=== PATIENT | male | born 1960 | race Caucasian/White ===

== ENCOUNTER → 2018-02-04 | Day surgery (SDC) | payer OTHER ==
[~2018-02-04] MED LIST: HYDROmorphone 2 MG/ML VIAL IV; LIDOCAINE 1% PF 2 ML VIAL. ID; LIDOCAINE 2% 100 MG/5 ML SYRINGE.; MORPHINE SULFATE 4 MG/ML DISP.SYRIN. IV; ONDANSETRON PF 4 MG/2 ML VIAL. IV; PROCHLORPERAZINE 10 MG/2 ML VIAL. IV; PROPOFOL 40 ML IV; fentaNYL PF VIAL 100 MCG/2 ML VIAL IV
[2018-02-04] MEDS: IV RINGERS,LACTATED 1000ML 1,000 ML IV (12:02)
== END | disposition home or self-care (01) ==
LOC: ENDOS 11:26
DX: Z12.11 Encounter for screening for malignant neoplasm of colon (principal); K64.0 First degree hemorrhoids; K62.1 Rectal polyp; K57.30 Diverticulosis of large intestine without perforation or abscess without bleeding; Z79.899 Other long term (current) drug therapy; Z79.82 Long term (current) use of aspirin; Z87.891 Personal history of nicotine dependence; M19.90 Unspecified osteoarthritis, unspecified site; Z86.19 Personal history of other infectious and parasitic diseases
CPT/HCPCS: 45380; 88305; J2704

== ENCOUNTER → 2018-02-10 | Outpatient (CLI) | payer OTHER ==
[2018-02-10 17:11] LABS: BARBITURATES NEG (NEG); BENZODIAZEPINES NEG (NEG); CANNABINOIDS NEG (NEG); COCAINE NEG (NEG); METHADONE NEG (NEG); OPIATES NEG (NEG); PHENCYCLIDINE NEG (NEG)
[2018-02-10 17:19] LABS: AMPHETAMINE/METHAMPHETAMINE NEG (NEG); ETHANOL, URINE NEG (NEG)
== END | disposition home or self-care (01) ==
LOC: LAB 15:39
DX: Z02.89 Encounter for other administrative examinations (principal); Z79.899 Other long term (current) drug therapy; Z79.82 Long term (current) use of aspirin; Z87.891 Personal history of nicotine dependence
CPT/HCPCS: 80307

== ENCOUNTER → 2019-05-03 | Day surgery (SDC) | payer OTHER ==
[~2019-05-03] MED LIST changes: +ASPI-482 PO; +CHOL100017 PO; -HYDROmorphone 2 MG/ML VIAL IV; +IV RINGERS,LACTATED 1000ML 1,000 ML IV SCH; +LANS30CA PO; -LIDOCAINE 1% PF 2 ML VIAL. ID; -LIDOCAINE 2% 100 MG/5 ML SYRINGE.; +LIDOCAINE 2% PF 5 ML VIAL. ONE; -MORPHINE SULFATE 4 MG/ML DISP.SYRIN. IV; -ONDANSETRON PF 4 MG/2 ML VIAL. IV; -PROCHLORPERAZINE 10 MG/2 ML VIAL. IV; +PROPOFOL 20 ML IV ONE; -PROPOFOL 40 ML IV; -fentaNYL PF VIAL 100 MCG/2 ML VIAL IV
[2019-05-03 17:31] VITALS: BP 142/85
== END ==
LOC: ENDOS 15:42
PROVIDERS: ATTEND Internal Medicine Gastroenterology
DX: K29.50 Unspecified chronic gastritis without bleeding (principal); K44.9 Diaphragmatic hernia without obstruction or gangrene; K21.9 Gastro-esophageal reflux disease without esophagitis; I10 Essential (primary) hypertension; Z87.39 Personal history of other diseases of the musculoskeletal system and connective tissue; Z86.010 Personal history of colon polyps; Z86.19 Personal history of other infectious and parasitic diseases; Z72.89 Other problems related to lifestyle; Z87.891 Personal history of nicotine dependence; Z79.82 Long term (current) use of aspirin
CPT/HCPCS: 43235; J2001; J2704

== ENCOUNTER → 2019-05-13 | Outpatient (CLI) | payer OTHER ==
[2019-05-03 17:31] VITALS: BP 142/85
[~2019-05-13] MED LIST changes: +CONTRAST GIVEN. MC PRN; +IOHEXOL 240 MG/ML 50ML VIAL. PO ONE; +IOHEXOL 300 MG/ML 100ML VIAL. IV ONE; -IV RINGERS,LACTATED 1000ML 1,000 ML IV SCH; -LIDOCAINE 2% PF 5 ML VIAL. ONE; -PROPOFOL 20 ML IV ONE
--- NOTE | 2019-05-13 12:46 | RAD ---
CT scan of the abdomen and pelvis with contrast 05/13/2019 CLINICAL HISTORY: 30 pound weight loss for 4 months. Epigastric pain. TECHNIQUE: After the oral and intravenous administration of contrast, contiguous, 5 mm axial sections were obtained through the abdomen and pelvis. One or more of the following individualized dose reduction techniques were utilized for this study: 1. Automated exposure control. 2. Adjustment of the mA and/or kV according to patient size. 3. Use of iterative reconstruction technique. FINDINGS: Images through the lung bases are within normal limits. The liver parenchyma has a decreased attenuation consistent with fatty infiltration. The spleen, pancreas, adrenal glands and kidneys are within normal limits. Atherosclerotic calcification of the abdominal aorta is seen. The abdominal aorta tapers normally. The gallbladder is well-distended. No free fluid or free air is within the abdomen. Air and stool is seen throughout the colon. The appendix is well-visualized and is within normal limits. Images through the pelvis demonstrate the urinary bladder distended with urine. Calcifications are seen within the pelvis consistent with phleboliths. Multiple diverticula are seen involving the sigmoid colon. No inflammatory changes are seen in the adjacent fat. No free fluid is noted. Minimal S-shaped curvature of the thoracolumbar spine is seen. IMPRESSION: No acute abnormality is seen. Electronically signed by: Tyrel Honeycutt MD (05/13/2019 12:43 PM) [place] [id number]
== END | disposition home or self-care (01) ==
LOC: CT 08:35
PROVIDERS: ATTEND Internal Medicine Gastroenterology
DX: K57.30 Diverticulosis of large intestine without perforation or abscess without bleeding (principal); I70.0 Atherosclerosis of aorta; N32.89 Other specified disorders of bladder; I10 Essential (primary) hypertension; Z79.01 Long term (current) use of anticoagulants; Z87.891 Personal history of nicotine dependence
CPT/HCPCS: 74177; Q9966; Q9967

== ENCOUNTER → 2019-05-27 | Outpatient (CLI) | payer OTHER ==
[2019-05-03 17:31] VITALS: BP 142/85
[~2019-05-27] MED LIST changes: -CONTRAST GIVEN. MC PRN; -IOHEXOL 240 MG/ML 50ML VIAL. PO ONE; -IOHEXOL 300 MG/ML 100ML VIAL. IV ONE
--- NOTE | 2019-05-27 15:01 | RAD ---
Gastric Emptying Study 05/27/2019 Indication: Abdominal pain, postprandial. Procedure: Anterior and posterior projection static images are obtained over the stomach following oral administration of 2 mCi of 99 M technetium sulfur colloid in a solid meal (egg and toast). Time points include an immediate baseline, and 1, 2, 3, and 4 hours post ingestion. Findings: There is progressive emptying of the stomach on sequential images. Percentage retention at... One hour is 56% (normal 34.8-91%). Two hours 24% (normal 2.7-60%). Three hours 19% (normal 0.5-28%). Four hours 8% (normal 0-10%). Impression: Normal 4 hour protocol gastric emptying study. Consensus Recommendations for Gastric Emptying Scintigraphy: A Joint Report of the [place] [employer] and the Society of Nuclear Medicine: J. Nucl. Med. Technol. January 2008 vol. 36 no. 1 44-54 Grading for severity of delayed GE based on the 4-h value: grade 1 (mild): 11?20% retention at 4 h grade 2 (moderate): 21?35% retention at 4 h grade 3 (severe): 36?50% retention at 4 h grade 4 (very severe): >50% retention at 4 h. Electronically signed by: Johnny Steel MD (05/27/2019 2:58 PM) [id number]
== END | disposition home or self-care (01) ==
LOC: NM 08:00
PROVIDERS: ATTEND Internal Medicine Gastroenterology
DX: R10.9 Unspecified abdominal pain (principal); R63.4 Abnormal weight loss
CPT/HCPCS: 78264; A9541

== ENCOUNTER → 2019-06-17 | Outpatient (CLI) | payer OTHER ==
[2019-05-03 17:31] VITALS: BP 142/85
[~2019-06-17] MED LIST changes: +DICY20TA3 PO; +OXYC-325 PO
[2019-06-17 11:19] LABS: BASO % 1 % (0-3); EOS # 0.1 x10^3/uL (0.0-0.7); EOS % 2 % (0-3); HEMATOCRIT 42.5 % (39.0-53.0); HEMOGLOBIN 14.5 g/dL (13.0-17.5); LYMPH # 1.8 x10^3/uL (1.0-4.8); LYMPH % 39 % (24-48); MEAN CORPUSCULAR HEMOGLOBIN 32 pg (25-35); MEAN CORPUSCULAR HGB CONC 34 g/dL (31-37); MEAN CORPUSCULAR VOLUME 93 fL (79-100); MONO # 0.5 x10^3/uL (0.0-1.1); MONO % 10 % (0-9); NEUT # 2.2 x10^3/uL (1.8-7.7); NEUT % 48 % (31-73); PLATELET COUNT 322 x10^3/uL (140-400); RED BLOOD COUNT 4.59 x10^6/uL (4.30-5.70); RED CELL DISTRIBUTION WIDTH 13.4 % (11.5-14.5); WHITE BLOOD COUNT 4.5 x10^3/uL (4.0-11.0)
[2019-06-17 11:22] LABS: ALBUMIN 4.3 g/dL (3.4-5.0); DIRECT BILIRUBIN 0.1 mg/dL (0.0-0.2); TOTAL BILIRUBIN 0.5 mg/dL (0.2-1.0)
[2019-06-17 11:27] LABS: PROTHROMBIN TIME PATIENT 12.4 SEC (11.7-14.0)
== END | disposition home or self-care (01) ==
LOC: LAB 10:53
PROVIDERS: ATTEND Surgery
DX: K80.20 Calculus of gallbladder without cholecystitis without obstruction (principal); B19.20 Unspecified viral hepatitis C without hepatic coma
CPT/HCPCS: 36415; 80076; 85025; 85610

== ENCOUNTER 2019-06-20 09:55 | Day surgery (SDC) | payer OTHER ==
[~2019-06-20 09:55] MED LIST changes: +BUPIVACAINE-EPI 0.5%-1:200000 MPF 30 ML VIAL. INJ ONE; +HYDROmorphone 2 MG/ML VIAL IV PRN; +IOHEXOL 300 MG/ML 50 ML VIAL. ONE; +IV RINGERS,LACTATED 1000ML 1,000 ML IV SCH; +LIDOCAINE 1% PF 2 ML VIAL. ID PRN; +MORPHINE SULFATE 2 MG/ML VIAL. IV PRN; +ONDANSETRON PF 4 MG/2 ML VIAL. IV PRN; -OXYC-325 PO; +PROCHLORPERAZINE 10 MG/2 ML VIAL. IV PRN; +SURGICEL HEMOSTAT 4X8 EACH. ONE; +ceFAZolin 2GM PREMIX 2 GM/50 ML BAG IV ONE; +fentaNYL PF VIAL 100 MCG/2 ML VIAL IV PRN
[2019-06-20] MEDS ORDERED: ONDANSETRON PF 4 MG/2 ML VIAL. ONE (10:17)
[2019-06-20] MEDS ORDERED: PROPOFOL 20 ML IV ONE (10:17)
[2019-06-20] MEDS ORDERED: ROCURONIUM 50 MG/5 ML VIAL. ONE (10:18)
[2019-06-20] MEDS ORDERED: DEXAMETHASONE SOD PHOS 4 MG/ML VIAL ONE (10:18)
[2019-06-20] MEDS ORDERED: MIDAZOLAM HCL/PF 2 MG/2 ML VIAL. ONE (10:18)
[2019-06-20] MEDS ORDERED: LIDOCAINE 2% PF 5 ML VIAL. ONE (10:18)
[2019-06-20] MEDS ORDERED: fentaNYL PF VIAL 100 MCG/2 ML VIAL ONE ×3 (10:18→12:38)
[2019-06-20] MEDS ORDERED: GLYCOPYRROLATE 1 MG/5 ML VIAL. ONE (12:02)
[2019-06-20] MEDS ORDERED: NEOSTIGMINE METHYLSULFATE 5 MG/5 ML SYRINGE. ONE (12:02)
--- NOTE | 2019-06-20 12:14 | PDOC4 ---
Operative Note Operative Note Operative Note: Preoperative Diagnosis: Symptomatic cholelithiasis Postoperative Diagnosis: Same Procedure: Laparoscopic cholecystectomy with intraoperative cholangiogram Surgeons: Sean Vegetable Buncher: Shawna PADRON Anesthesia: Gen. Estimated Blood Loss: 10 mL Specimen: Gallbladder to pathology Drains: None Complications: None Indications: The patient is a 58 year old male who is been experiencing recurrent upper abdominal pain consistent with biliary colic. Surgical treatment was offered by means of a laparoscopic cholecystectomy. The risks of surgery were discussed which include bleeding, infection, bile duct injury, bile leak, pain, the potential for additional surgeries or procedures. The patient understands and would like to proceed. Description: The patient was taken to the operating room and laid supine on the operating table. General anesthesia was performed. The abdomen was prepped with ChloraPrep and draped in a standard surgical fashion. A small infraumbilical incision was made with a scalpel. The Veress needle was then inserted and a pneumoperitoneum was then created. A 5 mm trocar was then inserted and the laparoscope was introduced. In the upper midabdomen a 5 mm trocar was inserted and in the right upper quadrant two 2.3 mm mini lap graspers were inserted. The gallbladder was retracted cephalad. The cystic duct was dissected free from surrounding tissues. One clip was placed on the duct near the gallbladder junction. An opening was made in the duct and a cholangiocatheter placed within and secured with a clip. Using contrast dye and fluoroscopy an intraoperative cholangiogram was performed that appeared unremarkable. The clip and catheter were then withdrawn. Three clips were placed on the cystic duct and it was divided. The cystic artery was then identified, dissected free, doubly clipped and divided as well. The gallbladder was then mobilized away from the liver with cautery. The umbilical 5 millimeter trocar was exchanged for an 11 millimeter trocar. The gallbladder was then placed in an endoscopic bag and extracted at the umbilical trocar site. The fascia there was closed with an 0 Vicryl suture. All blood and irrigation fluid was suctioned and hemostasis was good. The remaining ports were removed and the pneumoperitoneum was relieved. The skin incisions were injected with half percent Marcaine with epinephrine, and all were closed using 4-0 Monocryl suture. Steri-Strips and dressings were then applied. The patient tolerated the procedure well and was sent to the recovery room in stable condition. At the end of the case all counts were correct. WEI BARBER MD Jun 20, 2019 12:14
[2019-06-20] MEDS ORDERED: SEVOFLURANE 61 TO 120 MINUTES. IH ONE (12:16)
--- NOTE | 2019-06-20 12:17 | DISCH ---
DISCHARGE INSTRUCTIONS Condition on Discharge Condition on Discharge: Stable Activity After Discharge Activity Instructions for Disc: Other, see below (No lifting over 20 lbs X 2 weeks) Diet after Discharge Diet after Discharge: Regular Wound Incision Care Wound/Incision Care: Other, see below (may remove bandaids and shower tomorrow; steristrips will fall off tomorrow) Follow-Up Follow up with: Dr Barber in 2 weeks in the office, call for appt [phone] WEI BARBER MD Jun 20, 2019 12:17
[2019-06-20] MEDS ORDERED: PROCHLORPERAZINE 10 MG/2 ML VIAL. ONE (12:24)
[2019-06-20] MEDS: fentaNYL PF VIAL 100 MCG/2 ML VIAL IV PRN ×4 (12:29→13:28)
--- NOTE | 2019-06-20 12:35 | RAD ---
CHOLANGIOGRAM INTRAOPERATIVE Clinical Indication: Cholangiogram. Abdominal pain. Comparison: CT abdomen and pelvis with contrast, May 13, 2019. Findings: Total fluoroscopy time 19.3 seconds. 3 fluoroscopic spot images. Intraoperative fluoroscopy provided by the technologist. Contrast injection of cystic duct remnant. There is spillage into the duodenum. No filling defect is seen in the extrahepatic duct. There is partial contrast opacification of the intrahepatic ducts. IMPRESSION: No choledocholithiasis. Electronically signed by: Tomas Zamarripa MD (06/20/2019 12:31 PM) [id number]
[2019-06-20] MEDS ORDERED: oxyCODONE/APAP 5/325 1 TAB TABLET ONE (12:59)
[2019-06-20] MEDS ORDERED: OXYC-325 PO (13:03)
[2019-06-20] MEDS ORDERED: oxyCODONE/APAP 5/325 1 TAB TABLET PO ONE (13:15)
[2019-06-20 13:35] VITALS: BP 135/85
--- NOTE | 2019-06-21 18:06 | PATHOLOGY ---
[facility] Accession Number: [id number] . 01 Material submitted: . gallbladder - GALLBLADDER AND CONTENTS . 01 Clinical history: . Cholelithiasis . 02 Diagnosis: Gallbladder, cholecystectomy: - Cholelithiasis. - Chronic and focal early slight acute cholecystitis. LBQ/06/21/2019 . 02 Comment: There is no evidence of malignancy. (JPM/db; 06/21/2019) . 02 Electronically signed: . Denny Bradley MD, Pathologist NPI- [id number] . 01 Gross description: . The specimen is received in formalin, labeled "Arnel, Reggie, gallbladder and contents", is an intact, distended gallbladder measuring 9.0 cm in length and 3.8 cm in maximum diameter with a glistening, smooth and predominantly gr serosa. The cystic duct is patent. The gallbladder lumen contains yellow-green viscous bile and nine yellow bosselated calculi measuring 1.0 x 1.0 x 0.3 cm in aggregate. The mucosa is jim-brown and with no distinct cholesterolosis. The wall is 0.1 cm in average thickness. Representatively submitted in A1. ([facility]; 06/20/2019) SHS/SHS . 02 Pathologist provided ICD-10: K80.12 . 02 CPT . 813522 Specimen Comment: A courtesy copy of this report has been sent to Specimen Comment: [phone], . Specimen Comment: Report sent to / DR TERESA Performed at: 01 [facility] [address], [place], [place] [id number] MD Jad Goldman MD Phone: [phone] Performed at: 02 [facility] [address] [place], [place] [id number] MD Denny Bradley MD Phone: [phone]
== END 2019-06-20 13:49 | disposition home or self-care (01) ==
LOC: SURG 09:55
PROVIDERS: ATTEND Surgery
DX: K80.12 Calculus of gallbladder with acute and chronic cholecystitis without obstruction (principal); Z79.82 Long term (current) use of aspirin; Z86.19 Personal history of other infectious and parasitic diseases; Z87.891 Personal history of nicotine dependence; Z98.890 Other specified postprocedural states
CPT/HCPCS: 47563; 74300; A7015; J0696; J0780; J1100; J2001; J2250; J2405; J2704; J2710; J3010; J3490; J7030; J7120; Q9967